=== PATIENT | male | born 1990 | race Caucasian/White ===

== ENCOUNTER 2022-05-16 13:28 | Emergency (ER) | payer OTHER ==
[~2022-05-16] VITALS: Ht 182.9 cm; Wt 105.6 kg
[2022-05-16] MEDS ORDERED: dayquil PO (13:38)
[2022-05-16] MEDS ORDERED: NS 1,000 ML IV ONE (14:35)
[2022-05-16] MEDS ORDERED: VANCOMYCIN HCL 2,000 MG in D5W 500 ML IV ONE (14:35)
[2022-05-16] MEDS ORDERED: BOOSTRIX/ADACEL VACCINE (DIPHTH/PERTUSS/ACELL/TETANUS) 0.5ML SYR IM ONE (14:35)
[2022-05-16] MEDS ORDERED: ceFAZolin SOD 1 GM in D5W MINI-BAG PLUS 50 ML IV ONE (14:35)
[2022-05-16] MEDS ORDERED: KETOROLAC 30 MG/ML 1ML VIAL IV ONE (14:35)
[2022-05-16 15:13] LABS: BASO % 0.2 % (0.0-1.0); EOS # 0.1 10^3/uL (0.0-0.5); EOS % 0.6 % (0.0-3.0); HEMATOCRIT 42.6 % (42.0-52.0); HEMOGLOBIN 14.2 g/dl (13.5-17.5); LYMPH # 0.6 10^3/uL (1.5-5.0); LYMPH % 5.5 % (24.0-44.0); MEAN CORPUSCULAR HEMOGLOBIN 29.3 pg (27.0-33.0); MEAN CORPUSCULAR HGB CONC 33.3 g/dl (32.0-36.5); MONO # 0.5 10^3/uL (0.0-0.8); MONO % 4.8 % (2.0-8.0); NEUTROPHILS # 9.3 10^3/uL (1.5-8.5); NEUTROPHILS % 88.4 % (36.0-66.0); PLATELET COUNT, AUTOMATED 213 10^3/uL (150-450); RED BLOOD COUNT 4.84 10^6/uL (4.30-6.10); WHITE BLOOD COUNT 10.5 10^3/uL (4.0-10.0)
[2022-05-16 15:27] LABS: ERYTHROCYTE SEDIMENTATION RATE 11 mm/hr (0-15)
[2022-05-16 15:42] LABS: BLOOD UREA NITROGEN 14 MG/DL (9-23); CALCIUM LEVEL 8.8 MG/DL (8.5-10.1); CARBON DIOXIDE LEVEL 30 MMOL/L (20-31); CHLORIDE LEVEL 104 MMOL/L (98-107); CREATININE FOR GFR 1.04 MG/DL (0.70-1.30); GLOMERULAR FILTRATION RATE > 60.0 (>60); GLUCOSE, FASTING 105 MG/DL (60-100); POTASSIUM SERUM 4.1 MMOL/L (3.5-5.1); SODIUM LEVEL 138 MMOL/L (136-145)
[2022-05-16 15:46] LABS: RSV AMPLIFICATION NEGATIVE (NEGATIVE)
[2022-05-16] MEDS ORDERED: VANCOMYCIN HCL 1,000 MG, VIAL MATE ADAPTER 1 EACH in NS 250 ML IV ONE ×2 (16:00→17:00)
[2022-05-16] MEDS ORDERED: ACETAMINOPHEN 500 MG TAB PO ONE (18:10)
[2022-05-16] MEDS ORDERED: BENZ1LOZ9 PO (18:20)
[2022-05-16] MEDS ORDERED: CEPH500C PO (18:20)
[2022-05-16 18:42] VITALS: BP 129/68
== END 2022-05-16 19:06 | disposition home or self-care (01) ==
LOC: M ED 13:28
DX: L03.012 Cellulitis of left finger (principal); J02.0 Streptococcal pharyngitis; Z79.2 Long term (current) use of antibiotics; Z23 Encounter for immunization
CPT/HCPCS: 73130; 80048; 83605; 85025; 85652; 86140; 87040; 87631; 87880; 90471; 90715; 96365; 96375; 96376; 99284; J0690; J1885; J3370

== ENCOUNTER 2023-12-08 21:07 | Emergency (ER) | payer OTHER ==
[~2023-12-08] VITALS: Ht 182.9 cm; Wt 104.5 kg
[~2023-12-08 21:07] MED LIST: BENZ1LOZ9 PO; CEPH500C PO; dayquil PO
[2023-12-08 21:08] VITALS: BP 128/81; TEMP 97.2; O2SAT 100
[2023-12-08] MEDS: IBUPROFEN 600MG TAB PO ONE (22:50)
== END 2023-12-09 01:15 | disposition home or self-care (01) ==
LOC: M ED 21:07
DX: S30.810A Abrasion of lower back and pelvis, initial encounter (principal); V49.40XA Driver injured in collision with unspecified motor vehicles in traffic accident, initial encounter; Y92.410 Unspecified street and highway as the place of occurrence of the external cause; Y93.89 Activity, other specified; Y99.9 Unspecified external cause status; Z79.2 Long term (current) use of antibiotics; Z79.899 Other long term (current) drug therapy